=== PATIENT | male | born 1980 | race African-American/Black ===

== ENCOUNTER 2020-09-22 16:31 | Emergency (ER) | payer SELFPAY ==
[~2020-09-22] VITALS: Ht 175.3 cm; Wt 81.6 kg
[2020-09-22 16:52] VITALS: BP 156/86
== END 2020-09-22 16:56 | disposition home or self-care (01) ==
LOC: ER 16:31
DX: F10.920 Alcohol use, unspecified with intoxication, uncomplicated (principal); F17.210 Nicotine dependence, cigarettes, uncomplicated

== ENCOUNTER 2024-03-25 14:40 | Emergency (ER) | payer BC, MEDICAID ==
[~2024-03-25] VITALS: Ht 175.3 cm; Wt 77.2 kg
[2024-03-25 15:21] LABS: Basophils # (auto) 0.1 10 ^3/uL (0-0.2); Eosinophils # (auto) 0.2 10 ^3/uL (0-0.8); Eosinophils % (auto) 2.8 % (0.0-7.0); Hematocrit 39.4 % (41.0-53.0); Hemoglobin 13.3 g/dL (13.5-17.5); Lymphocytes # (auto) 1.9 10 ^3/uL (0.4-5.4); Lymphocytes % (auto) 31.1 % (10.0-50.0); Mean Corpuscular Hemoglobin 32.9 pg (28.0-32.0); Mean Corpuscular Hgb Conc. 33.6 g/dL (32.0-36.0); Mean Corpuscular Volume 97.7 fL (80.0-100.0); Monocytes # (auto) 0.5 10 ^3/uL (0-1.3); Monocytes % (auto) 7.8 % (0.0-12.0); Neutrophils # (auto) 3.5 10 ^3/uL (1.6-8.6); Neutrophils % (auto) 56.3 % (37.0-80.0); Nucleated Red Blood Cells % 0.2 %; Platelet Count (auto) 185 10^3/uL (140-450); Red Blood Cells 4.03 10^6/uL (4.5-5.90); Red Cell Distribution Width 14.3 % (11.8-14.3); White Blood Cell 6.3 10^3/uL (4.4-10.8)
[2024-03-25 15:46] LABS: Alanine Aminotransferase 61 U/L (7-40); Albumin 4.3 g/dL (3.2-4.8); Alkaline Phosphatase 106 U/L (46-116); Anion Gap 12 (5-15); Aspartate Aminotransferase 94 U/L (13-40); BUN/Creatinine Ratio 9.8 (10.0-20.0); Blood Urea Nitrogen 8 mg/dL (9-23); Calcium 9.7 mg/dL (8.7-10.4); Carbon Dioxide 22 mmol/L (20-30); Chloride 108 mmol/L (98-107); Glucose 86 mg/dL (74-106); Potassium 3.8 mmol/L (3.5-5.1); Sodium 142 mmol/L (136-145)
[2024-03-25 15:47] LABS: Bilirubin, Total 0.9 mg/dL (0.2-1.0); Total Protein 7.8 g/dL (5.7-8.2)
[2024-03-25 16:10] LABS: Blood Alcohol 389.8 mg/dL (<10)
[2024-03-25 16:12] LABS: INR 1.06 (0.9-1.15); Partial Thromboplastin Time 28.5 SEC (24.5-34.5); Prothrombin Time 11.2 sec (9.3-11.8)
[2024-03-25] MEDS ORDERED: AZITHROMYCIN 500MG/ 250ML 250 ML IV ONE (16:45)
[2024-03-25 17:08] VITALS: BP 134/87; PULSE 81; RESP 16; TEMP 98.1; O2SAT 97
[2024-03-25] MEDS: cefTRIAXone 1GM/50ML D5W 50 ML IV ONE (17:35)
[2024-03-25] MEDS ORDERED: IOHEXOL 350 MG/ML 100ML IJ ONE (17:49)
[2024-03-25 19:23] LABS: Lactic Acid w/Reflex 2.7 mmol/L (0.4-2.0)
== END 2024-03-25 18:05 | disposition left against medical advice (07) ==
LOC: EDUNIT# 14:40 → EDBD 14:40 → ER 14:40
DX: J18.9 Pneumonia, unspecified organism (principal); R07.89 Other chest pain; F10.90 Alcohol use, unspecified, uncomplicated; Y90.0 Blood alcohol level of less than 20 mg/100 ml
CPT/HCPCS: 36415; 71045; 71275; 80053; 80320; 83605; 83690; 83735; 83880; 84484; 85025; 85379; 85610; 85730; 87040; 93005; 96365; 99285; J0696; Q9967

== ENCOUNTER 2024-06-12 10:16 | Inpatient (IN) | payer SELFPAY ==
[~2024-06-12] VITALS: Ht 175.3 cm; Wt 78.0 kg
--- NOTE | 2024-06-12 10:32 | ED.PDOC ---
HPI Comments 44 y.o male presents to the ED for a chief complaint of left sided chest pain associated with SOB that has been going on for over 3 weeks, worse since around 0400 today. Patient was seen in the ED by me on 03/25/24 for similar symptoms including L parasternal CP, sob with exertion, dry cough, generalized weakness. Chest x-ray showed possible pneumonia, CT angio chest did not show any acute abnormality, however patient left against medical advice piror to treatment due to having to take care of his mother at home. Patient states chest pain feels similar from his last visit. Patient denies any leg swelling, nausea, vomiting, abdominal pain, fever, chills. No other medical history reported. Time Seen by MD: 10:17 Primary Care Provider: NONE Reviewed Notes: Nurses Notes, Courtroom Reporter Notes, Medications, Allergies Allergies: Coded Allergies: NO KNOWN ALLERGIES (Unverified , 07/24/10) Information Source: Patient, Emergency Med Personnel Mode of Arrival: EMS Severity: Moderate Timing: Weeks Duration: Since onset Prehospital treatment: 12 Lead EKG, [employer] Consultant Location: Chest (L) Radiation: No Radiation Quality: Sharp Onset: At Rest Cardiac Risk Factors: None PE Risk Factors: None History of: Similar pain in past Modifying Factors: Nothing Associated Signs and Symptoms: SOB Past Medical History Past Medical History (Other): Emphysema Surgical History: Denies all surgeries Family History Family History: No family hx of DM, Family hx of heart hans Social History Smoker: Non-Smoker Alcohol: Occasionally Drugs: Denies Drug Use Lives In: Home Constitutional: denies: chills, diaphoresis, fatigue, fever, malaise, sweats, weakness, others EENTM: denies: blurred vision, double vision, ear bleeding, ear discharge, ear drainage, ear pain, ear ringing, eye pain, eye redness, hearing loss, mouth pain, mouth swelling, nasal discharge, nose bleeding, nose congestion, nose pa in, photophobia, tearing, throat pain, throat swelling, voice changes, others Respiratory: reports: SOB at rest, shortness of breath, SOB with excertion; denies: cough, hemoptysis, orthopnea, stridor, wheezing, others Cardiovascular: reports: chest pain; denies: dizzy spells, diaphoresis, Dyspnea on exertion, edema, irregular heart beat, left arm pain, lightheadedness, palpitations, PND, syncope, others Gastrointestinal: denies: abdomen distended, abdominal pain, blood streaked bowels, constipated, diarrhea, dysphagia, difficulty swallowing, hematemesis, melena, nausea, poor appetite, poor fluid intake, rectal bleeding, rectal pain, vomiting, others Genitourinary: denies: burning, dysuria, flank pain, frequency, hematuria, incontinence, penile discharge, penile sore, pain, testicle pain, testicle swelling, urgency, others Neurological: denies: dizziness, fainting, headache, left sided numbness, left sided weakness, numbness, paresthesia, pre-existing deficit, right sided numbness, right sided weakness, seizure, speech problems, tingling, tremors, weakness, others Musculoskeletal: denies: back pain, gout, joint pain, joint swelling, muscle pain, muscle stiffness, neck pain, others Integumetry: denies: bruises, change in color, change in hair/nails, dryness, laceration, lesions, lumps, rash, wounds, others Hematologic/Lymphatic: denies: anemia, blood clots, easy bleeding, easy bruisi ng, swollen glands, others Endocrine: denies: excessive hunger, excessive sweating, excessive thirst, exce ssive urination, flushing, intolerance to cold, intolerance to heat, unexplained weight gain, unexplained weight loss, others Psychiatric: denies: anxiety, bipolar disorder, depression, hopeless, panic disorder, schizophrenia, sleepless, suicidal, others All Other Systems: Reviewed and Negative Physical Exam General Appearance: No Apparent Distress, Normal HEENT: Normal ENT Inspection Neck: Full Range of Motion, Normal Inspection Respiratory: Decreased Breath Sounds (left base), No Accessory Muscle Use, No Respiratory Distress Cardiovascular: No Edema, No JVD, Regular Rate/Rhythm Breast Exam: Deferred Gastrointestinal: Non Tender, Soft Genitalia: Deferred Pelvic: Deferred Rectal: Deferred Extremities: No calf tenderness, Normal inspection, Normal range of motion, Non-tender, No pedal edema Neurologic: Alert, No Motor Deficits, Normal Affect, Normal Mood, No Sensory Deficits Cerebellar Function: NOT DONE Reflexes: NOT DONE Skin: Dry, Normal Color, Warm Lymphatic: NOT DONE EKG EKG : Comments Sinus rhythm, rate 78, ID slightly prolonged at 206, normal QRS interval, QTC slightly prolonged at 453, left axis deviation, normal QRS complex, no ST/T changes. No significant change from prior EKG 03/2024 Was a procedure done? Was a procedure done?: No CP Differential Dx Differential Diagnosis: Angina, Anxiety / Panic Attack, Heart Failure, MD Other Differential Diagnosis COPD Differential Diagnosis: Angina, Chest Wall Pain, Myocardial Infarction, Pericarditis, Pneumonia, Pulmonary Embolus, Other (Pleural effusion, Pulmonary hypertension, and Pulmonary infarction) X-Ray, Labs, Meds, VS Vital Signs Date Time Temp Pulse Resp B/P (MAP) Pulse Ox O2 Delivery O2 Flow Rate FiO2 06/12/24 12:13 71 16 126/83 (97) 93 06/12/24 12:01 73 06/12/24 11:21 98.0 81 15 132/83 (99) 93 98.0 06/12/24 11:14 80 14 95 Room Air* 0 21 06/12/24 11:07 98.4 81 20 146/95 (112) 98 Lab Test 06/12/24 11:45 06/12/24 10:41 Range/Units Troponin I High Sensitivity 8 8 </=54 ng/L White Blood Count 5.6 4.4-10.8 10^3/uL Red Blood Count 4.33 L 4.5-5.90 10^6/uL Hemoglobin 14.5 13.5-17.5 g/dL Hematocrit 42.2 41.0-53.0 % Mean Corpuscular Volume 97.3 80.0-100.0 fL Mean Corpuscular Hemoglobin 33.5 H 28.0-32.0 pg Mean Corpuscular Hemoglobin Concent 34.4 32.0-36.0 g/dL Red Cell Distribution Width 13.1 11.8-14.3 % Platelet Count 222 140-450 10^3/uL Mean Platelet Volume 7.9 6.9-10.8 fL Neutrophils (%) (Auto) 44.3 37.0-80.0 % Lymphocytes (%) (Auto) 39.5 10.0-50.0 % Monocytes (%) (Auto) 10.5 0.0-12.0 % Eosinophils (%) (Auto) 2.7 0.0-7.0 % Basophils (%) (Auto) 3.0 H 0.0-2.0 % Neutrophils # (Auto) 2.5 1.6-8.6 10 ^3/uL Lymphocytes # (Auto) 2.2 0.4-5.4 10 ^3/uL Monocytes # (Auto) 0.6 0-1.3 10 ^3/uL Eosinophils # (Auto) 0.2 0-0.8 10 ^3/uL Basophils # (Auto) 0.2 0-0.2 10 ^3/uL Nucleated Red Blood Cells 0.0 % Sodium Level 143 136-145 mmol/L Potassium Level 4.3 3.5-5.1 mmol/L Chloride Level 108 H 98-107 mmol/L Carbon Dioxide Level 28 20-31 mmol/L Anion Gap 7 5-15 Blood Urea Nitrogen 7 L 9-23 mg/dL Creatinine 0.84 0.700-1.30 mg/dL Glomerular Filtration Rate Calc 109 >90 mL/min BUN/Creatinine Ratio 8.3 L 10.0-20.0 Serum Glucose 104 74-106 mg/dL Lactic Acid Level 2.6 *H 0.4-2.0 mmol/L Calcium Level 9.5 8.7-10.4 mg/dL B-Type Natriuretic Peptide 7.33 0-100 pg/mL Current Medications Medications (Trade) Dose Ordered Sig/Cameron Route Start Time Stop Time Status Last Admin Sodium Chloride 1,000 ml @ 1,000 mls/hr Q1H ONCE IV 06/12/24 12:00 06/12/24 12:59 06/12/24 11:55 Sodium Chloride 2,100 ml @ 2,100 mls/hr ONCE ONCE IV 06/12/24 12:00 06/12/24 12:59 06/12/24 12:05 PROCEDURE(s): CXRP - CHEST PORTABLE REASON: sob ORDER NUMBER(s): [id number], ACCESSION NUMBER(s): [id number] CHEST RADIOGRAPH Indication:sob Technique: Single frontal view of the chest was obtained COMPARISON: XY CHEST PORTABLE on DOS: 03/25/24 FINDINGS: Lines and Tubes: None Lungs: Clear Pleura: No effusion. No pneumothorax. Cardiomediastinal contours: Unremarkable Bones: Unremarkable IMPRESSION: 1. No acute disease. X-Ray, Labs, Meds, VS Comment 44-year-old male with history of emphysema presenting complaining of chest pain and shortness breath, associated with dry cough and generalized weakness Vitals unremarkable Exam remarkable for diminished breath sounds at the left base EKG sinus rhythm, no ST/T changes Chest x-ray no acute disease CBC, CMP, BNP and 1st troponin unremarkable for any abnormality of acute significance Lactate 2.6 Patient stated he was not having chest pain or shortness breath at rest, only with exertion. He received 1 L 0.9 normal saline IV bolus due to the elevated lactate. Heart score is 4. This is the patient's 2nd visit for similar symptoms, and no definitive diagnosis was made on his last visit. Plan is to admit the patient to trend lactate, and for Cardiology and pulmonology evaluation. Time of 1ST Reevaluation: 10:25 Reevaluation 1ST: Unchanged Time of 2ND Reevaluation: 11:43 Reevaluation 2ND: Unchanged Patient Education/Counseling: Diagnosis, Treatment, Prognosis Family Education/Counseling: No Family Present Departure 1 Departure Time of Disposition: 11:41 Impression: Primary Impression: Chest pain Qualified Codes: R07.9 - Chest pain, unspecified Additional Impressions: Dyspnea on exertion Elevated lactic acid level Disposition: ADMITTED INPATIENT Admit to: Tele Condition: Guarded Critical Care Note Critical Care Time?: No Stability Stability form required: No Heart Score Heart Score: Heart Score Response (Comments) Value History Highly Suspicious 2 EKG Normal 0 Age 45-64 1 Risk Factors 1 or 2 risk factors 1 Troponin Normal limit 0 Total 4 I personally scribed for ANNETTE FAJARDO MD ([facility]) on 06/12/24 at 10:32. Electronically submitted by Helen Cherry ([facility]). I personally scribed for ANNETTE FAJARDO MD ([facility]) on 06/12/24 at 12:26. Electronically submitted by Helen Cherry ([facility]). ANNETTE FAJARDO MD Jun 12, 2024 10:32
[2024-06-12 10:50] LABS: Basophils # (auto) 0.2 10 ^3/uL (0-0.2); Eosinophils # (auto) 0.2 10 ^3/uL (0-0.8); Eosinophils % (auto) 2.7 % (0.0-7.0); Hematocrit 42.2 % (41.0-53.0); Hemoglobin 14.5 g/dL (13.5-17.5); Lymphocytes # (auto) 2.2 10 ^3/uL (0.4-5.4); Lymphocytes % (auto) 39.5 % (10.0-50.0); Mean Corpuscular Hemoglobin 33.5 pg (28.0-32.0); Mean Corpuscular Hgb Conc. 34.4 g/dL (32.0-36.0); Mean Corpuscular Volume 97.3 fL (80.0-100.0); Monocytes # (auto) 0.6 10 ^3/uL (0-1.3); Monocytes % (auto) 10.5 % (0.0-12.0); Neutrophils # (auto) 2.5 10 ^3/uL (1.6-8.6); Neutrophils % (auto) 44.3 % (37.0-80.0); Platelet Count (auto) 222 10^3/uL (140-450); Red Blood Cells 4.33 10^6/uL (4.5-5.90); Red Cell Distribution Width 13.1 % (11.8-14.3); White Blood Cell 5.6 10^3/uL (4.4-10.8)
[2024-06-12 11:14] VITALS: PULSE 80; RESP 14; O2SAT 95
--- NOTE | 2024-06-12 11:15 | DVH ---
CHEST RADIOGRAPH Indication:sob Technique: Single frontal view of the chest was obtained COMPARISON: XY CHEST PORTABLE on DOS: 03/25/24 FINDINGS: Lines and Tubes: None Lungs: Clear Pleura: No effusion. No pneumothorax. Cardiomediastinal contours: Unremarkable Bones: Unremarkable IMPRESSION: 1. No acute disease.
[2024-06-12 11:21] VITALS: TEMP 98
[2024-06-12 11:22] LABS: Chloride 108 mmol/L (98-107); Potassium 4.3 mmol/L (3.5-5.1); Sodium 143 mmol/L (136-145)
[2024-06-12 11:23] LABS: Anion Gap 7 (5-15); Carbon Dioxide 28 mmol/L (20-31)
[2024-06-12 11:24] LABS: Calcium 9.5 mg/dL (8.7-10.4)
[2024-06-12 11:27] LABS: Lactic Acid w/Reflex 2.6 mmol/L (0.4-2.0)
[2024-06-12 11:28] LABS: Glucose 104 mg/dL (74-106)
[2024-06-12 11:29] LABS: BUN/Creatinine Ratio 8.3 (10.0-20.0); Blood Urea Nitrogen 7 mg/dL (9-23)
[2024-06-12] MEDS: SODIUM CHLORIDE 0.9% 1,000 ML IV ONE (11:55)
[2024-06-12] MEDS ORDERED: SODIUM CHLORIDE 0.9% 1,000 ML IV ONE (12:00)
[2024-06-12] MEDS: SODIUM CHLORIDE 0.9% 2,100 ML IV ONE (12:05)
[2024-06-12 12:13] VITALS: BP 126/83; PULSE 71; RESP 16; O2SAT 93
[2024-06-12] MEDS ORDERED: ACETAMINOPHEN 325 MG TAB PO PRN (13:30)
[2024-06-12] MEDS ORDERED: NITROGLYCERIN 0.4 MG SL TAB SL PRN (13:30)
--- NOTE | 2024-06-12 13:40 | DVHHP2 ---
History of Present Illness Reason for Visit: Chest Pain History of Present Illness 44 yo male with stated history emphysema states that he had shortness of breath and chest pain patient currently in no acute distress Pulmonary: Pneumonia Review of Systems Constitutional: No: Fever, Chills, Sweats, Weakness, Malaise, Other Eyes: No: Pain, Vision change, Conjunctivae inflammation, Eyelid inflammation, Other, Redness ENT: No: Ear pain, Ear discharge, Nose pain, Nose discharge, Nose congestion, Mouth pain, Mouth swelling, Throat pain, Throat swelling, Other Respiratory: Shortness of breath; No: Cough, Dry, SOB with excertion, Wheezing, Hemoptysis, Pleuritic Pain, Sputum, Wheezing, Other Cardiovascular: Chest Pain; No: Palpitations, Orthopnea, Paroxysmal Noc. Dyspnea, Edema, Lt Headedness, Other Gastrointestinal: No: Nausea, Vomiting, Abdominal Pain, Diarrhea, Constipation, Melena, Hematochezia, Other Genitourinary: No Dysuria, No Frequency, No Incontinence, No Hematuria, No Retention, No Other Musculoskeletal: No: other, neck pain, shoulder pain, arm pain, back pain, hand pain, leg pain, foot pain Skin: No: Rash, Lesions, Jaundice, Bruising, Other Neurological: No: Weakness, Numbness, Incoordination, Change in speech, Confusion, Seizures, Other Allergies: Coded Allergies: NO KNOWN ALLERGIES (Unverified , 07/24/10) Exam Vital Signs Vital Signs Date Time Temp Pulse Resp B/P (MAP) Pulse Ox O2 Delivery O2 Flow Rate FiO2 06/12/24 12:13 71 16 126/83 (97) 93 06/12/24 11:21 98.0 98.0 06/12/24 11:14 Room Air* 0 21 General Appearance: Alert, Oriented X3 HEENT: Atraumatic, PERRLA Respiratory: Clear to auscultation, Normal air movement Cardiovascular: Regular rate Abdominal: Normal bowel sounds Extremities: No clubbing, No cyanosis Skin: No rashes, No breakdown Neuro: Normal gait Psych/Mental Status: Mood NL Labs/Xrays Labs Test 06/12/24 12:57 06/12/24 11:45 06/12/24 10:41 Range/Units Troponin I High Sensitivity 8 </=54 ng/L White Blood Count 5.6 4.4-10.8 10^3/uL Red Blood Count 4.33 L 4.5-5.90 10^6/uL Hemoglobin 14.5 13.5-17.5 g/dL Hematocrit 42.2 41.0-53.0 % Mean Corpuscular Volume 97.3 80.0-100.0 fL Mean Corpuscular Hemoglobin 33.5 H 28.0-32.0 pg Mean Corpuscular Hemoglobin Concent 34.4 32.0-36.0 g/dL Red Cell Distribution Width 13.1 11.8-14.3 % Platelet Count 222 140-450 10^3/uL Mean Platelet Volume 7.9 6.9-10.8 fL Neutrophils (%) (Auto) 44.3 37.0-80.0 % Lymphocytes (%) (Auto) 39.5 10.0-50.0 % Monocytes (%) (Auto) 10.5 0.0-12.0 % Eosinophils (%) (Auto) 2.7 0.0-7.0 % Basophils (%) (Auto) 3.0 H 0.0-2.0 % Neutrophils # (Auto) 2.5 1.6-8.6 10 ^3/uL Lymphocytes # (Auto) 2.2 0.4-5.4 10 ^3/uL Monocytes # (Auto) 0.6 0-1.3 10 ^3/uL Eosinophils # (Auto) 0.2 0-0.8 10 ^3/uL Basophils # (Auto) 0.2 0-0.2 10 ^3/uL Nucleated Red Blood Cells 0.0 % Sodium Level 143 136-145 mmol/L Potassium Level 4.3 3.5-5.1 mmol/L Chloride Level 108 H 98-107 mmol/L Carbon Dioxide Level 28 20-31 mmol/L Anion Gap 7 5-15 Blood Urea Nitrogen 7 L 9-23 mg/dL Creatinine 0.84 0.700-1.30 mg/dL Glomerular Filtration Rate Calc 109 >90 mL/min BUN/Creatinine Ratio 8.3 L 10.0-20.0 Serum Glucose 104 74-106 mg/dL Calcium Level 9.5 8.7-10.4 mg/dL B-Type Natriuretic Peptide 7.33 0-100 pg/mL Assessment/Plan Assessment/Plan Admit to [facility] ACS chest pain evaluation chest pain protocol history of noncompliance previous visit was an LAMA stated history of heavy ETOH monitor for possible withdrawal currently no acute signs noted Plan discussed with: Patient My Orders Orders - LETTY WALL MD Procedure Category Date Status Time Admit ADMIT 06/12/24 Transmitted 13:28 Code Status CODE 06/12/24 Transmitted 13:28 Vital Signs [facility] 06/12/24 Transmitted 13:28 Aspirin Tablet [facility] 06/13/24 Transmitted 10:00 Clopidogrel Bisulfate [facility] 06/13/24 Transmitted (Plavix) 10:00 Lipitor 40mg Hs [facility] 06/12/24 Transmitted Hi-Intensity 22:00 Metoprolol Tartrate [facility] 06/12/24 Transmitted Tablet (Lopressor Ta 22:00 Lisinopril Tablet [facility] 06/13/24 Transmitted (Zestril Tablet) 10:00 Acetaminophen Tablet [facility] 06/12/24 Transmitted (Tylenol Tablet) 13:30 Docusate Sodium [facility] 06/13/24 Transmitted Capsule (Colace 10:00 Complete Blood Count LAB 06/13/24 Verified 04:00 Basic Metabolic Panel LAB 06/13/24 Verified 04:00 Nitroglycerin [facility] 06/12/24 Transmitted Sublingual (Ntrostat 13:30 Electrocardigram EKG 06/12/24 Logged 13:28 Troponin-I Hs LAB 06/12/24 Transmitted 13:28 Cardiac [facility] 06/12/24 Transmitted Rehabilitation - Outpa Stat Ekg For Chest [facility] 06/12/24 Transmitted Pain 13:28 Notify Md Of Changes [facility] 06/12/24 Transmitted From Base 13:28 Primary Operator For [facility] 06/12/24 Transmitted 24 Hours 13:28 Emergency Dysrhythmia [facility] 06/12/24 Transmitted Protocol 13:28 Rhythm Strips Once [facility] 06/12/24 Transmitted Every Shift 13:28 Oxygen By Nasal RT 06/12/24 Transmitted Cannula 13:28 Electrocardigram EKG 06/12/24 Logged 14:28 Electrocardigram EKG 06/12/24 Logged 16:28 Troponin-I Hs LAB 06/12/24 Transmitted 14:28 Troponin-I Hs LAB 06/12/24 Transmitted 16:28 Problem List: (1) Chest pain (2) Dyspnea on exertion (3) Elevated lactic acid level Date of Service: Jun 12, 2024 Billing Provider: LETTY WALL MD Common Visit Codes: 53754-NBUIBBO INP/OBS CARE (HIGH) LETTY WALL MD Jun 12, 2024 13:40
[2024-06-12] MEDS: ASPirin 81 mg TAB PO SCH (13:41)
[2024-06-12] MEDS ORDERED: ATORVASTATIN 20 MG TAB PO SCH (22:00)
[2024-06-12] MEDS ORDERED: METOPROLOL TARTRATE 25 MG TAB PO SCH (22:00)
[2024-06-13] MEDS ORDERED: CLOPIDOGREL BISULFATE 75 MG TAB PO SCH (10:00)
[2024-06-13] MEDS ORDERED: DOCUSATE SOD 100 MG CAP PO SCH (10:00)
[2024-06-13] MEDS ORDERED: LISINOPRIL 5 MG TAB PO SCH (10:00)
--- NOTE | 2024-06-14 13:40 | ECG ---
[facility] Test Date: 2024-06-12 Test Time: 10:18:25 Pat Name: GALA GLOVER Department: er Room: [address] [place] [address] Gender: M [employer]: peewee : 1980 Requested By: LETTY WALL Order Number: [id number] Reading MD: Measurements Intervals [place] Rate: 78 P: 70 NC: 206 QRS: -25 QRSD: 92 T: 16 QT: 397 QTc: 453 Interpretive Statements Sinus rhythm Borderline prolonged NC interval Borderline left axis deviation Abnormal R-wave progression, early transition Please click the below link to view image of tracing.
== END 2024-06-12 14:45 | disposition left against medical advice (07) | DRG 311 ==
LOC: EDBD 10:16 → ER 10:16 → TELE 13:28
PROVIDERS: ADMIT Hospitalist; ATTEND Hospitalist
DX: I24.9 Acute ischemic heart disease, unspecified (principal); E87.20 Acidosis, unspecified; Z53.29 Procedure and treatment not carried out because of patient's decision for other reasons; J43.9 Emphysema, unspecified; Z91.199 Patient's noncompliance with other medical treatment and regimen due to unspecified reason
CPT/HCPCS: 36415; 71045; 80048; 83605; 83880; 84484; 85025; 93005; 96360; G0378

== ENCOUNTER 2024-11-30 02:23 | Inpatient (IN) | payer MEDICAID ==
[~2024-11-30] VITALS: Ht 175.3 cm; Wt 69.0 kg
[2024-11-30 04:32] LABS: Basophils # (auto) 0.1 10 ^3/uL (0-0.2); Basophils % (auto) 0.8 % (0.0-2.0); Eosinophils # (auto) 0 10 ^3/uL (0-0.8); Eosinophils % (auto) 0.1 % (0.0-7.0); Hematocrit 37.8 % (41.0-53.0); Hemoglobin 12.8 g/dL (13.5-17.5); Lymphocytes % (auto) 11.2 % (10.0-50.0); Mean Corpuscular Hemoglobin 31.8 pg (28.0-32.0); Mean Corpuscular Hgb Conc. 33.9 g/dL (32.0-36.0); Mean Corpuscular Volume 93.6 fL (80.0-100.0); Monocytes # (auto) 1.1 10 ^3/uL (0-1.3); Monocytes % (auto) 12.1 % (0.0-12.0); Neutrophils % (auto) 75.8 % (37.0-80.0); Nucleated Red Blood Cells % 0.1 %; Platelet Count (auto) 151 10^3/uL (140-450); Red Blood Cells 4.04 10^6/uL (4.5-5.90); Red Cell Distribution Width 15.5 % (11.8-14.3); White Blood Cell 9.2 10^3/uL (4.4-10.8)
[2024-11-30 05:00] LABS: Alkaline Phosphatase 93 U/L (46-116); Anion Gap 13 (5-15); BUN/Creatinine Ratio 18.9 (10.0-20.0); Blood Urea Nitrogen 21 mg/dL (9-23); Carbon Dioxide 25 mmol/L (20-31); Glucose 86 mg/dL (74-106); Lipase 49 U/L (12-53)
--- NOTE | 2024-11-30 05:05 | ED.PDOC ---
History of Present Illness HPI Comments 44 y/o M presents with c/o nonradiating, right-sided abdomen for 1 day, today. patient endorses on unprovoked onset of pain, yesterday. Describes it as intermittent in severity. Denies any significant medical history, with exception of emphysema and medication noncompliance. Reports also injuring his head and losing consciousness a week ago, while helping his grandmother cook. Patient denies nausea, vomiting, fever, chills, or other associated symptoms at this time. Chief Complaint: Abdominal Pain Time Seen by MD: 04:20 Primary Care Provider: NONE Reviewed Notes: Nurses Notes, Medications, Allergies Allergies: Coded Allergies: NO KNOWN ALLERGIES (Unverified , 07/24/10) Information Source: Patient Mode of Arrival: EMS Severity: Moderate Timing: Days Duration: Since onset Prehospital treatment: None Past Medical History PAST MEDICAL HISTORY: COPD Surgical History: Denies all surgeries Family History Family History: No family hx of DM, Family hx of heart hans Social History Smoker: Non-Smoker Alcohol: Occasionally Drugs: Denies Drug Use Lives In: Home All Other Systems: Reviewed and Negative (as per HPI) Physical Exam General Appearance: No Apparent Distress, Normal HEENT: Normal ENT Inspection, Pharynx Normal, TMs Normal Neck: Full Range of Motion, Non-Tender, Normal, Normal Inspection Respiratory: Chest Non-Tender, Lungs Clear, No Accessory Muscle Use, No Respiratory Distress, Normal Breath Sounds Cardiovascular: No Edema, No JVD, No Murmur, No Gallop, Normal Peripheral Pulses, Regular Rate/Rhythm Breast Exam: Deferred Gastrointestinal: No Organomegaly, Non Tender, No Pulsatile Mass, Normal Bowel Sounds, Soft Genitalia: Deferred Pelvic: Deferred Rectal: Deferred Extremities: No calf tenderness, Normal capillary refill, Normal inspection, No rmal range of motion, Non-tender, No pedal edema Musculoskeletal : Apperance: Normal Neurologic: Alert, hydroelectric operator II-XII nml as Tested, No Motor Deficits, Normal Affect, Normal Mood, No Sensory Deficits Cerebellar Function: Normal Reflexes: Normal Skin: Dry, Normal Color, Warm Lymphatic: No Adenopathy Was a procedure done? Was a procedure done?: No Differential Dx Considerations may include: gastritis, gastroenteritis, cholelithiasis, cholecystitis, closed head injury, among others X-Ray, Labs, Meds, VS Vital Signs Date Time Temp Pulse Resp B/P (MAP) Pulse Ox O2 Delivery O2 Flow Rate FiO2 11/30/24 02:34 98.6 84 16 136/98 (111) 98 98.6 Lab Test 11/30/24 04:20 Range/Units White Blood Count 9.2 4.4-10.8 10^3/uL Red Blood Count 4.04 L 4.5-5.90 10^6/uL Hemoglobin 12.8 L 13.5-17.5 g/dL Hematocrit 37.8 L 41.0-53.0 % Mean Corpuscular Volume 93.6 80.0-100.0 fL Mean Corpuscular Hemoglobin 31.8 28.0-32.0 pg Mean Corpuscular Hemoglobin Concent 33.9 32.0-36.0 g/dL Red Cell Distribution Width 15.5 H 11.8-14.3 % Platelet Count 151 140-450 10^3/uL Mean Platelet Volume 8.2 6.9-10.8 fL Neutrophils (%) (Auto) 75.8 37.0-80.0 % Lymphocytes (%) (Auto) 11.2 10.0-50.0 % Monocytes (%) (Auto) 12.1 H 0.0-12.0 % Eosinophils (%) (Auto) 0.1 0.0-7.0 % Basophils (%) (Auto) 0.8 0.0-2.0 % Neutrophils # (Auto) 7.0 1.6-8.6 10 ^3/uL Lymphocytes # (Auto) 1.0 0.4-5.4 10 ^3/uL Monocytes # (Auto) 1.1 0-1.3 10 ^3/uL Eosinophils # (Auto) 0 0-0.8 10 ^3/uL Basophils # (Auto) 0.1 0-0.2 10 ^3/uL Nucleated Red Blood Cells 0.1 % Sodium Level 135 L 136-145 mmol/L Potassium Level 3.3 L 3.5-5.1 mmol/L Chloride Level 97 L 98-107 mmol/L Carbon Dioxide Level 25 20-31 mmol/L Anion Gap 13 5-15 Blood Urea Nitrogen 21 9-23 mg/dL Creatinine 1.11 0.700-1.30 mg/dL Glomerular Filtration Rate Calc 83 >90 mL/min BUN/Creatinine Ratio 18.9 10.0-20.0 Serum Glucose 86 74-106 mg/dL Calcium Level 10.0 8.7-10.4 mg/dL Total Bilirubin 1.9 H 0.2-1.0 mg/dL Aspartate Amino Transferase (AST) 77 H 13-40 U/L Alanine Aminotransferase (ALT) 50 H 7-40 U/L Alkaline Phosphatase 93 46-116 U/L Total Protein 8.5 H 5.7-8.2 g/dL Albumin 4.8 3.2-4.8 g/dL Lipase 49 12-53 U/L Time of 1ST Reevaluation: 04:50 Reevaluation 1ST: Unchanged Patient Education/Counseling: Diagnosis, Treatment Family Education/Counseling: No Family Present Additional Information ordered, and results were reviewed by me: June 12, 2024 encounter for chest pain Additional Information was gathered from interviewing the following independent historians: CT abdomen/pelvis w/IV contrast, Head CT w/o contrast, UA, lipase, CMP, CBC, UA I reviewed and agreed with the following test results read by other providers: CT abdomen/pelvis w/IV contrast, Head CT w/o contrast I discussed treatment and results with medical personnel and: Patient Departure 1 Departure Time of Disposition: 05:39 (Patient with intractable abdominal pain and oozing head wound. We will admit patient for further workup) Impression: Primary Impression: Intractable abdominal pain Additional Impression: Syncope Qualified Codes: R55 - Syncope and collapse Disposition: 09 ADMITTED INPATIENT Admit to: Med Surg Condition: Serious Critical Care Note Critical Care Time?: No Stability Stability form required: No Heart Score Heart Score: Heart Score Response (Comments) Value History N/A 0 EKG N/A 0 Age N/A 0 Risk Factors N/A 0 Troponin N/A 0 Total 0 I personally scribed for ANDREI HERNANDEZ MD ([email or web address]) on 11/30/24 at 05:05. Electronically submitted by Ishmael Tovar ([email or web address]). ANDREI HERNANDEZ MD Nov 30, 2024 05:05
[2024-11-30 05:10] LABS: Alanine Aminotransferase 50 U/L (7-40); Albumin 4.8 g/dL (3.2-4.8); Aspartate Aminotransferase 77 U/L (13-40); Bilirubin, Total 1.9 mg/dL (0.2-1.0); Chloride 97 mmol/L (98-107); Potassium 3.3 mmol/L (3.5-5.1); Sodium 135 mmol/L (136-145); Total Protein 8.5 g/dL (5.7-8.2)
--- NOTE | 2024-11-30 05:21 | DVH ---
EXAM: CT Head Without Intravenous Contrast CLINICAL INDICATION: fall with headstrike TECHNIQUE: Axial computed tomography images of the head/brain without intravenous contrast. This CT exam was performed using one or more of the following dose reduction techniques: automated exposure control, adjustment of the mA and/or kV according to patient size, and/or use of iterative reconstru ction technique. CONTRAST: RADIATION DOSE: CTDIvol = 56.59 mGy, DLP = 1489.0 mGy-cm COMPARISON: None FINDINGS: BRAIN AND EXTRA-AXIAL SPACES: No acute intracranial hemorrhage, midline shift or mass effect. If sy mptoms persist, further evaluation with MRI is recommended. No significant white matter disease. BONES/JOINTS: Unremarkable. No acute fracture. SOFT TISSUES: Unremarkable. SINUSES: Unremarkable as visualized. No acute sinusitis. MASTOID AIR CELLS: Unremarkable as visualized. No mastoid effusion. OTHER FINDINGS: . IMPRESSION: No acute intracranial hemorrhage, midline shift or mass effect. If symptoms persist, further evaluat ion with MRI is recommended.
--- NOTE | 2024-11-30 05:23 | DVH ---
EXAM: CT Abdomen and Pelvis With Intravenous Contrast CLINICAL INDICATION: abdominal pain, nausea, vomiting TECHNIQUE: Axial computed tomography images of the abdomen and pelvis with intravenous contrast. is CT exam was performed using one or more of the following dose reduction techniques: automated exp osure control, adjustment of the mA and/or kV according to patient size, and/or use of iterative veda nstruction technique. CONTRAST: COMPARISON: None FINDINGS: LUNG BASES: Unremarkable. No mass. No consolidation. ABDOMEN: LIVER: Hepatomegaly with fatty infiltration. GALLBLADDER AND BILE DUCTS: Unremarkable. No calcified stones. No ductal dilation. PANCREAS: Unremarkable. No mass. No ductal dilation. SPLEEN: Unremarkable. No splenomegaly. ADRENALS: Unremarkable. No mass. KIDNEYS AND URETERS: Unremarkable. No stones within either kidney. No hydronephrosis. STOMACH AND BOWEL: Fecal retention in the colon consistent with constipation. No obstruction. No mucosal thickening. PELVIS: APPENDIX: No findings to suggest acute appendicitis. BLADDER: Unremarkable. No mass. REPRODUCTIVE: Unremarkable as visualized. ABDOMEN and PELVIS: INTRAPERITONEAL SPACE: Unremarkable. No free air. No significant fluid collection. BONES/JOINTS: No acute fracture. No dislocation. SOFT TISSUES: Unremarkable. VASCULATURE: Unremarkable. No abdominal aortic aneurysm. LYMPH NODES: Unremarkable. No enlarged lymph nodes. OTHER FINDINGS: . . IMPRESSION: 1. Hepatomegaly with fatty infiltration. 2. Fecal retention in the colon consistent with constipation. 3. No obstructive uropathy.
[2024-11-30] MEDS ORDERED: ONDANSETRON HCL 4 MG/2 ML VIAL IV PRN (06:30)
[2024-11-30] MEDS ORDERED: SODIUM CHLORIDE 0.9% 1,000 ML IV SCH ×2 (06:30→08:00)
[2024-11-30] MEDS ORDERED: DOCUSATE SOD 100 MG CAP PO PRN (06:30)
[2024-11-30] MEDS ORDERED: ACETAMINOPHEN 325 MG TAB PO PRN (06:30)
[2024-11-30] MEDS: IOHEXOL 300 MG/ML 100ML BOTTLE IJ ONE (06:39)
--- NOTE | 2024-11-30 08:10 | DVHHP2 ---
History of Present Illness Reason for Visit: In intractable abdominal pain and recent fall with LOC History of Present Illness 44-year-old male presented with nonradiating right-sided abdominal pain x1 day. Patient describes it as intermittent. Patient states he slipped and fell and hit his head, he does not remember any of the incidents he did lose consciousness and he states his grandmother had to throw water on him to wake him up. Patient also adds x1 week left leg weakness or heaviness, strength is equal in legs stroke assessment is negative. Patient appears to be a poor historian, when I went back to asked patient about abdominal pain he states abdominal pain stopped before he got to the hospital. He also seems to have a difficult time getting words out, no speech slurring and no confusion apparent, could possibly be anxiety related or alcohol withdrawal, per patient he drinks alcohol daily last drink was last night. He denies nausea, vomiting, fever, chills. Patient denies any medical history. Admitting to medical-surgical for monitoring Past Medical History Emphysema Past Surgical History Denies Family History Denies Smoke: No ALCOHOL: heavy Drugs: None Lives: with Family Review of Systems Constitutional: No: Fever, Chills, Sweats, Weakness, Malaise, Other Eyes: No: Pain, Vision change, Conjunctivae inflammation, Eyelid inflammation, Other, Redness ENT: No: Ear pain, Ear discharge, Nose pain, Nose discharge, Nose congestion, Mouth pain, Mouth swelling, Throat pain, Throat swelling, Other Respiratory: No: Cough, Dry, Shortness of breath, SOB with excertion, Wheezing, Hemoptysis, Pleuritic Pain, Sputum, Wheezing, Other Cardiovascular: No: Chest Pain, Palpitations, Orthopnea, Paroxysmal Noc. Dyspnea, Edema, Lt Headedness, Other Gastrointestinal: No: Nausea, Vomiting, Abdominal Pain, Diarrhea, Constipation, Melena, Hematochezia, Other Genitourinary: No Dysuria, No Frequency, No Incontinence, No Hematuria, No Retention, No Other Musculoskeletal: other (Left leg weakness per patient); No: neck pain, shoulder pain, arm pain, back pain, hand pain, leg pain, foot pain Skin: No: Rash, Lesions, Jaundice, Bruising, Other Neurological: Weakness (Left leg); No: Numbness, Incoordination, Change in sp eech, Confusion, Seizures, Other Allergies: Coded Allergies: NO KNOWN ALLERGIES (Unverified , 07/24/10) Medications Current Medications Medications Dose Ordered Sig/Cameron Route Start Time Stop Time Status Last Admin Dose Admin Sodium Chloride 1,000 ml @ 60 mls/hr [id number] IV 11/30/24 06:30 Ondansetron HCl 4 mg Q4HP PRN IV 11/30/24 06:30 Docusate Sodium 100 mg BIDPRN PRN PO 11/30/24 06:30 Acetaminophen 650 mg Q6HP PRN PO 11/30/24 06:30 Pantoprazole Sodium 40 mg DAILY@0600 PO 12/01/24 06:00 Exam Vital Signs Vital Signs Date Time Temp Pulse Resp B/P (MAP) Pulse Ox O2 Delivery O2 Flow Rate FiO2 11/30/24 02:34 98.6 84 16 136/98 (111) 98 98.6 General Appearance: Alert, Oriented X3, Cooperative, No acute distress HEENT: Atraumatic, PERRLA, EOMI, Mucous membr. moist/pink Respiratory: Clear to auscultation, Normal air movement Cardiovascular: Regular rate, Normal S1, Normal S2, No murmurs Abdominal: Normal bowel sounds, Soft, No tenderness, No hepatospenomegaly, No masses Extremities: No clubbing, No cyanosis, No edema, Normal pulses, No te nderness/swelling Skin: No rashes, No breakdown, No significant lesion Neuro: Normal speech, Strength at 5/5 X4 ext, Normal tone, Sensation intact, Cranial nerves 3-12 NL, Reflexes 2+, Other (Patient has some difficulty moving left leg) Psych/Mental Status: Mental status NL, Mood NL Labs/Xrays Labs and imaging reviewed Labs Test 11/30/24 04:20 Range/Units White Blood Count 9.2 4.4-10.8 10^3/uL Red Blood Count 4.04 L 4.5-5.90 10^6/uL Hemoglobin 12.8 L 13.5-17.5 g/dL Hematocrit 37.8 L 41.0-53.0 % Mean Corpuscular Volume 93.6 80.0-100.0 fL Mean Corpuscular Hemoglobin 31.8 28.0-32.0 pg Mean Corpuscular Hemoglobin Concent 33.9 32.0-36.0 g/dL Red Cell Distribution Width 15.5 H 11.8-14.3 % Platelet Count 151 140-450 10^3/uL Mean Platelet Volume 8.2 6.9-10.8 fL Neutrophils (%) (Auto) 75.8 37.0-80.0 % Lymphocytes (%) (Auto) 11.2 10.0-50.0 % Monocytes (%) (Auto) 12.1 H 0.0-12.0 % Eosinophils (%) (Auto) 0.1 0.0-7.0 % Basophils (%) (Auto) 0.8 0.0-2.0 % Neutrophils # (Auto) 7.0 1.6-8.6 10 ^3/uL Lymphocytes # (Auto) 1.0 0.4-5.4 10 ^3/uL Monocytes # (Auto) 1.1 0-1.3 10 ^3/uL Eosinophils # (Auto) 0 0-0.8 10 ^3/uL Basophils # (Auto) 0.1 0-0.2 10 ^3/uL Nucleated Red Blood Cells 0.1 % Sodium Level 135 L 136-145 mmol/L Potassium Level 3.3 L 3.5-5.1 mmol/L Chloride Level 97 L 98-107 mmol/L Carbon Dioxide Level 25 20-31 mmol/L Anion Gap 13 5-15 Blood Urea Nitrogen 21 9-23 mg/dL Creatinine 1.11 0.700-1.30 mg/dL Glomerular Filtration Rate Calc 83 >90 mL/min BUN/Creatinine Ratio 18.9 10.0-20.0 Serum Glucose 86 74-106 mg/dL Calcium Level 10.0 8.7-10.4 mg/dL Total Bilirubin 1.9 H 0.2-1.0 mg/dL Aspartate Amino Transferase (AST) 77 H 13-40 U/L Alanine Aminotransferase (ALT) 50 H 7-40 U/L Alkaline Phosphatase 93 46-116 U/L Total Protein 8.5 H 5.7-8.2 g/dL Albumin 4.8 3.2-4.8 g/dL Lipase 49 12-53 U/L Assessment/Plan Assessment/Plan Head injury with loss of consciousness/left leg weakness Admit to medical-surgical Consider neuro consult CT head negative CT abdomen/pelvis-constipation ETOH abuse/withdrawal Banana bag/IV fluids director of professional services consult GI prophylaxis not indicated ED prophylaxis not indicated Regular diet Plan discussed with: Patient My Orders Orders - AYDEN LOREDO Procedure Category Date Status Time Admit ADMIT 11/30/24 Transmitted 06:23 Allergies FELICIANO 11/30/24 In Process 06:23 Code Status CODE 11/30/24 Transmitted 06:23 Sodium Chloride 0.9% PHA 11/30/24 In Process 06:30 Ondansetron Hcl PHA 11/30/24 In Process (Zofran) 06:30 Docusate Sodium PHA 11/30/24 In Process Capsule (Colace 06:30 Fall Risk Precautions FELICIANO 11/30/[address] 06:23 Complete Blood Count LAB 12/01/24 Verified 04:00 Comprehensive LAB 12/01/24 Verified Metabolic Panel 04:00 Condition: Fair FELICIANO 11/30/24 In Process 06:23 Acetaminophen Tablet PHA 11/30/24 In Process (Tylenol Tablet) 06:30 Bedrest With Bathroom FELICIANO 11/30/24 In Process Privileg 06:23 Regular Diet DIET 11/30/24 Transmitted Breakfast Pantoprazole Tablet PHA 12/01/24 In Process (Protonix Tablet) 06:00 0.9% Ns 1000 Ml PHA 11/30/24 Verified 08:00 Date of Service: Nov 30, 2024 Billing Provider: AYDEN LOREDO Common Visit Codes: [id number] INP/OBS CARE (HIGH) AYDEN LOREDO Nov 30, 2024 08:10
[2024-11-30 09:00] VITALS: BP 131/79; PULSE 95
[2024-11-30 10:00] VITALS: PULSE 91; RESP 16; O2SAT 99
[2024-11-30] MEDS: SODIUM CHLORIDE 0.9% 1,000 ML IV ONE (11:43)
--- NOTE | 2024-11-30 14:33 | DVHPN2 ---
Assessment/Plan Assessment/Plan progress note 44 yo M with alcohol use admitted for abdominal pain and syncope seen today during rounds, still have epigastric pain, able to tolerate oral physical exam AOx4 posterior scalp wound closed with dried blood, dry wall debris in hair? PERLLA, crust on OS no injection L lateral supraorbital lac nasal bridge bruises MMM clear breath sounds s1 s2 rrr no murmur abdomen soft, epigastric pain no paraspinal CVA tenderness no LE edema labs ekg and imaging reviewed assessment and plan abdominal pain likely alcoholic gastritis vs viral noninfectios GE alcohol use hx of alcohol withdrawal hypokalemia syncope with prodrome probably dehydration head lac constipation protonix carafate maalox CIWA protocol hold librium taper if no withdrawal pain management avoid NSAID replete lytes telemetry diet full liq dvt ppx ambulatory Plan discussed with: Patient My Orders Orders - JESSY ACOSTA MD Procedure Category Date Status Time Magnesium LAB 12/01/24 Verified 04:00 Phosphorus LAB 12/01/24 Verified 04:00 Basic Metabolic Panel LAB 12/01/24 Verified 04:00 LIVER US 11/30/24 Logged 14:22 Date of Service: Nov 30, 2024 Billing Provider: JESSY ACOSTA MD Common Visit Codes: [id number] INP/OBS CARE(HIGH) JESSY ACOSTA MD Nov 30, 2024 14:33
[2024-11-30] MEDS ORDERED: FOLIC ACID 1 MG in D5W 5% 50 ML INJ SCH (14:45)
[2024-11-30] MEDS ORDERED: MAALOX PLUS or MAALOX 30 ML PO PRN (14:45)
[2024-11-30 15:00] VITALS: BP 121/86; RESP 22; TEMP 98.6
[2024-11-30] MEDS: FOLIC ACID 1 MG in D5W 5% 50 ML INJ SCH (15:02)
--- NOTE | 2024-11-30 15:13 | DVH ---
INDICATION: RUQ pain TECHNIQUE: Multiple real-time sonographic images were obtained of the right upper quadrant. COMPARISON: None FINDINGS: The liver demonstrates heterogeneous echotexture without focal mass lesions. The liver ruy ures 15cm. There is no intrahepatic or extrahepatic ductal dilatation. The gallbladder is without evidence of stone or sludge. The gallbladder wall measures 0.2 mm and is within normal limits. The right kidney measures 11 cm. The right kidney is normal in contour, size, and shape. The echogen icity is normal. There is no hydronephrosis. The pancreas is not well visualized due to overlying bowel gas. IMPRESSION: Hepatic steatosis.
[2024-11-30] MEDS: POTASSIUM EFFERVESENT TAB 25 MEQ GT ONE (16:25)
[2024-11-30] MEDS: POLYETHYLENE GLYCOL 17 GM PWDR PO ONE (16:25)
[2024-11-30] MEDS: SENNA 8.6 MG TAB PO ONE (16:26)
[2024-11-30] MEDS: THIAMINE 100mg/ml INJ (200mg/2ml VIAL) IV ONE (16:49)
[2024-11-30] MEDS: SUCRALFATE 1 GM/10 ML ORAL SUSP PO SCH (17:16)
[2024-11-30] MEDS ORDERED: FOLIC ACID 1 MG, MULTIPLE VITAMIN 10 ML, MAGNESIUM SULF SDV 50% 8 MEQ, THIAMINE INJ 100... INJ SCH (18:00)
[2024-11-30 18:18] VITALS: BP 130/85; PULSE 95; TEMP 98.7; O2SAT 98
[2024-11-30 19:31] LABS: Urine Bacteria None Seen /hpf (None Seen)
[2024-11-30 19:39] LABS: Urine Blood Negative /uL (Negative); Urine Clarity Clear (Clear); Urine Color Light-Orange (Yellow); Urine Protein, UAD Negative (Negative); Urine Specific Gravity 1.028 (1.001-1.035); Urine Squamous Epithelial Cell FEW /hpf (<5); Urine Urobilinogen Normal (Negative); Urine WBC 18 /HPF (0-3); Urine pH 5.5 (5.0-9.0)
[2024-11-30 21:00] VITALS: BP 108/88; PULSE 98; RESP 19; TEMP 98.6; O2SAT 99
[2024-12-01] MEDS ORDERED: PANTOPRAZOLE 40 MG TAB PO SCH (06:00)
--- NOTE | 2024-12-01 09:30 | DVHDS2 ---
Discharge Summary Date of Admission Nov 30, 2024 at 06:23 Date of Discharge: Dec 01, 2024 Labs/Diagnostic Data: Laboratory Results Test 11/30/24 19:30 11/30/24 04:20 Urine Color Light-orange (Yellow) Urine Clarity Clear (Clear) Urine pH 5.5 (5.0-9.0) Urine Specific [place] 1.028 (1.001-1.035) Urine Protein Negative (Negative) Urine Ketones 1+ (Negative) Urine Blood Negative /uL (Negative) Urine Nitrite Negative (Negative) Urine Bilirubin Negative (Negative) Urine Urobilinogen Normal mg/dL (Negative) Urine Leukocyte Esterase 1+ /uL (Negative) Urine RBC 1 /hpf (0 - 3) Urine Microscopic WBC 18 /HPF (0-3) Urine Squamous Epithelial Cells Few /hpf (<5) Urine Bacteria None seen /hpf (None Seen) Urine Glucose Normal mg/dL (Normal) White Blood Count 9.2 10^3/uL (4.4-10.8) Red Blood Count 4.04 10^6/uL (4.5-5.90) Hemoglobin 12.8 g/dL (13.5-17.5) Hematocrit 37.8 % (41.0-53.0) Mean Corpuscular Volume 93.6 fL (80.0-100.0) Mean Corpuscular Hemoglobin 31.8 pg (28.0-32.0) Mean Corpuscular Hemoglobin Concent 33.9 g/dL (32.0-36.0) Red Cell Distribution Width 15.5 % (11.8-14.3) Platelet Count 151 10^3/uL (140-450) Mean Platelet Volume 8.2 fL (6.9-10.8) Neutrophils (%) (Auto) 75.8 % (37.0-80.0) Lymphocytes (%) (Auto) 11.2 % (10.0-50.0) Monocytes (%) (Auto) 12.1 % (0.0-12.0) Eosinophils (%) (Auto) 0.1 % (0.0-7.0) Basophils (%) (Auto) 0.8 % (0.0-2.0) Neutrophils # (Auto) 7.0 10 ^3/uL (1.6-8.6) Lymphocytes # (Auto) 1.0 10 ^3/uL (0.4-5.4) Monocytes # (Auto) 1.1 10 ^3/uL (0-1.3) Eosinophils # (Auto) 0 10 ^3/uL (0-0.8) Basophils # (Auto) 0.1 10 ^3/uL (0-0.2) Nucleated Red Blood Cells 0.1 % Sodium Level 135 mmol/L (136-145) Potassium Level 3.3 mmol/L (3.5-5.1) Chloride Level 97 mmol/L (98-107) Carbon Dioxide Level 25 mmol/L (20-31) Anion Gap 13 (5-15) Blood Urea Nitrogen 21 mg/dL (9-23) Creatinine 1.11 mg/dL (0.700-1.30) Glomerular Filtration Rate Calc 83 mL/min (>90) BUN/Creatinine Ratio 18.9 (10.0-20.0) Serum Glucose 86 mg/dL (74-106) Calcium Level 10.0 mg/dL (8.7-10.4) Total Bilirubin 1.9 mg/dL (0.2-1.0) Aspartate Amino Transferase (AST) 77 U/L (13-40) Alanine Aminotransferase (ALT) 50 U/L (7-40) Alkaline Phosphatase 93 U/L (46-116) Total Protein 8.5 g/dL (5.7-8.2) Albumin 4.8 g/dL (3.2-4.8) Lipase 49 U/L (12-53) Other Laboratory Tests 11/30/24 04:20 Brief Hx & Hospital Course: 44 yo M with alcohol use admitted for abdominal pain and syncope, still have epigastric pain, able to tolerate oral. head wound with dry wall debris and dried blood. neuro intact. patient left during the night AMA. Condition at Discharge: Fair Final Diagnosis/Problems List abdominal pain likely alcoholic gastritis vs viral noninfectios GE alcohol use hx of alcohol withdrawal hypokalemia syncope with prodrome probably dehydration head lac constipation Discharge Disposition: AMA Discharge Statement: "Patient was advised to return to the ER or call 911 if any headaches, dizziness, shortness of breath, chest pain, abdominal pain, bleeding, fevers, or worsening of medical condition. Patient was counseled about treatment plan, medications, possible side effects, patientverbalized understanding. All questions were answered to the best of my ability. This discharge took greater then 30 minutes in planning, reviewing documentation, counseling the patient, and discussing with other team members." ASSESSMENT ASSESSMENT Assessment abdominal pain likely alcoholic gastritis vs viral noninfectios GE alcohol use hx of alcohol withdrawal hypokalemia syncope with prodrome probably dehydration head lac constipation Date of Service: Dec 01, 2024 Billing Provider: JESSY ACOSTA MD Common Visit Codes: 48296-IAT/OBS DISCH DAY <30MIN JESSY ACOSTA MD Dec 01, 2024 09:30
[2024-12-01] MEDS ORDERED: THIAMINE 100mg/ml INJ (200mg/2ml VIAL) IV SCH (10:00)
== END 2024-12-01 01:04 | disposition left against medical advice (07) | DRG 241 ==
LOC: EDBD 02:23 → ER 02:23 → OVERFLOW 06:23
PROVIDERS: ADMIT Student in an Organized Health Care Education/Training Program; ATTEND Student in an Organized Health Care Education/Training Program
DX: K29.20 Alcoholic gastritis without bleeding (principal); S06.899A Other specified intracranial injury with loss of consciousness of unspecified duration, initial encounter; F10.139 Alcohol abuse with withdrawal, unspecified; E86.0 Dehydration; Z53.29 Procedure and treatment not carried out because of patient's decision for other reasons; E87.6 Hypokalemia; J43.9 Emphysema, unspecified; K59.00 Constipation, unspecified; B34.8 Other viral infections of unspecified site; Z79.899 Other long term (current) drug therapy; W01.0XXA Fall on same level from slipping, tripping and stumbling without subsequent striking against object, initial encounter; Y93.89 Activity, other specified; Y92.89 Other specified places as the place of occurrence of the external cause; Y99.8 Other external cause status; Y90.9 Presence of alcohol in blood, level not specified
CPT/HCPCS: 36415; 70450; 74177; 76705; 80053; 81001; 83690; 85025; 96365; G0378; J7060